=== PATIENT | female | born 1955 | race Hispanic/Latino ===

== ENCOUNTER 2022-12-25 06:39 | Day surgery (SDC) | payer OTHER, MEDICARE ==
[~2022-12-25 06:39] MED LIST: NEXIUM40 M1 OR; POLYTRIM OU
[2022-12-25] MEDS ORDERED: INDERAL10 M1 PO (07:49)
[2022-12-25] MEDS ORDERED: CENTRU3 PO (07:51)
[2022-12-25] MEDS ORDERED: VITAMIN D PO (07:52)
[2022-12-25] MEDS ORDERED: PROBIOTI3 PO (07:53)
[2022-12-25] MEDS ORDERED: MAGNESIUM300 MG PO (07:54)
[2022-12-25] MEDS ORDERED: WELLBUTRIN XL300 MG PO (08:05)
[2022-12-25] MEDS ORDERED: CRESTOR20 MG PO (08:06)
[2022-12-25] MEDS ORDERED: LANSOPRAZOLE PO (08:07)
[2022-12-25 10:12] VITALS: BP 134/80
== END 2022-12-25 10:50 | disposition home or self-care (01) | DRG 392 ==
LOC: ORM 06:39
PROVIDERS: ATTEND Internal Medicine Gastroenterology
PROC: 0DB98ZX Excision of Duodenum, Via Natural or Artificial Opening Endoscopic, Diagnostic (ICD-10-PCS; principal; 2022-12-25)
PROC: 0DB78ZX Excision of Stomach, Pylorus, Via Natural or Artificial Opening Endoscopic, Diagnostic (ICD-10-PCS; 2022-12-25)
PROC: 0DB68ZX Excision of Stomach, Via Natural or Artificial Opening Endoscopic, Diagnostic (ICD-10-PCS; 2022-12-25)
PROC: 0DB48ZX Excision of Esophagogastric Junction, Via Natural or Artificial Opening Endoscopic, Diagnostic (ICD-10-PCS; 2022-12-25)
DX: K29.50 Unspecified chronic gastritis without bleeding (principal); K31.7 Polyp of stomach and duodenum; E78.5 Hyperlipidemia, unspecified